=== PATIENT | female | born 1930 | race Caucasian/White ===

== ENCOUNTER → 2017-04-06 | Outpatient (CLI) | payer OTHER ==
[~2017-04-06] VITALS: Ht 154.9 cm; Wt 63.0 kg
[~2017-04-06] MED LIST: ADVIL100 M2 PO; ALEVE220 MG PO; AREDS PO; ASPIRIN EC81 M1 PO; HYDROCHLOROTHIA25 M1 PO; HYDROCODONE-AP1 EAC6 PO; MELOXICAM7.5 MG PO; PERCOCET 5-3251 EACH PO; SIMVASTATIN20 MG PO; VESICARE10 M1 PO
--- NOTE | ~2017-04-06 | HPC ---
[facility] [place] [address] PAIN MANAGEMENT CONSULTATION Name: RALPH GIL Room #: REG BIJAN Barraza#: [id number] Admission: 04/06/17 Attend Phys: Magdiel Owusu MD Discharge: Date of : [birth year] Report #: [id number] THIS REPORT FOR: //name// CC: Juan J Owusu DATE OF SERVICE: 04/06/2017 Followup visit for chronic low back pain with radiculopathy. It has been over 3 years since I saw the patient who responded beautifully at that time to a lumbar epidural steroid injection using a transforaminal approach at L4-L5. Her pain has always been present, but it has been very modest and she has been able to manage it effectively. Recently, the pain is increased in intensity. She scores it as an 8/10 on the pain score. This causes fatigue and often she has to lay down to alleviate the pain. She has been doing her best to remain active. She has been using recumbent bike much to her credit at the age of 86. Today, she presents requesting an epidural injection. Pain is in her left leg, left hip and it follows an L5-S1 distribution. MEDICATIONS: VESIcare, naproxen, aspirin, simvastatin and hydrochlorothiazide. ALLERGIES: SULFA AND CLARITHROMYCIN. PAST MEDICAL HISTORY: Remarkable for chronic and recurring back pain. She had a tubal in 1967 and hysterectomy in 1969. Her health has been good. REVIEW OF SYSTEMS: Positive for pain. She denies chest pain, shortness of breath, changes in diet or changes in bowel or bladder. She exercises. SOCIAL HISTORY: She is . is present. They live independently. She does not smoke or drink. PQRS reviewed. All medications were reviewed and reconciled. The patient does not have hypertension. She is not on opioid medication. Her BMI is 26.2. She does not smoke. PHYSICAL EXAMINATION: VITAL SIGNS: Blood pressure 114/68, heart rate 87 and respirations 16. BMI is 26.2. MUSCULOSKELETAL: She ambulates with antalgic features. She has mild weakness. Positive straight leg raising is noted bilaterally worse on the left. It follows an L5 distribution through the thigh and calf. Sensation is intact. [address] [address] PAIN MANAGEMENT CONSULTATION Name: RALPH GIL Room #: REG Felicia Oates.#: [id number] Admission: 04/06/17 Attend Phys: Magdiel Owusu MD Discharge: Date of : [birth year] Report #: [id number] IMPRESSION: 1. Chronic recurring low back pain with radiculopathy in the left L5-S1. 2. Lumbar spondylosis. PLAN: Repeat epidural steroid injection under fluoroscopic guidance. PROCEDURE: She was taken to the fluoroscopic suite for the transforaminal injection, placed prone, skin was prepped with ChloraPrep. Skin anesthetized over the L4-L5 neural foramen. A 20-gauge Tuohy epidural needle advanced first attempt in the epidural space through the neural foramen using triplanar fluoroscopic views; 1 mL of Omnipaque injected and excellent spread of dye observed into the epidural space followed by 3 mL of 1% lidocaine and 60 mg of triamcinolone. She tolerated the procedure well and was observed for 45 minutes and discharged. Follow up as needed. No medications were ordered. I did provide counseling regarding exercise. <ELECTRONICALLY SIGNED> By: Magdiel Owusu MD 05/17/17 1640 [id number] [id number] Magdiel Owusu MD /nt
[2017-04-06 10:46] VITALS: BP 114/68
== END | disposition home or self-care (01) ==
LOC: PAIN 07:18
DX: M54.16 Radiculopathy, lumbar region (principal); G89.29 Other chronic pain; M47.896 Other spondylosis, lumbar region; Z79.82 Long term (current) use of aspirin; Z79.899 Other long term (current) drug therapy; Z88.2 Allergy status to sulfonamides; Z88.8 Allergy status to other drugs, medicaments and biological substances; Z90.710 Acquired absence of both cervix and uterus; Z98.890 Other specified postprocedural states

== ENCOUNTER → 2017-07-05 | Outpatient (CLI) | payer OTHER | LOC: RAD 11:43 | DX: Z12.31 Encounter for screening mammogram for malignant neoplasm of breast (principal) ==

== ENCOUNTER 2017-12-13 14:55 | Inpatient (IN) | payer OTHER ==
[~2017-12-13] VITALS: Ht 152.4 cm; Wt 65.8 kg
--- NOTE | ~2017-12-13 | EKG ---
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1930 Requested By: Rianna Caceres Order Number: [id number] MD: Alex Lucas Measurements Intervals [place] Rate: 124 P: 52 WI: 153 QRS: 42 QRSD: 85 T: 189 QT: 303 QTc: 436 Interpretive Statements Sinus tachycardia Probable LVH with secondary repol abnrm Baseline wander in lead(s) II,III,aVR,aVL,aVF,V1,V2,V3,V4,V5,V6 Compared to ECG 12/13/2017 15:00:34 No significant changes Electronically Signed On 12-17-2017 13:26:55 CDT by Alex Lucas [email or web address] <ELECTRONICALLY SIGNED> By: Alex Lucas MD 12/17/176 36 36 Alex Lucas MD /EPI
--- NOTE | ~2017-12-13 | HC ---
[facility] [place] [address] CONSULTATION Name: RALPH GIL Room #: 427-P ADM IN M.R.#: [id number] Admission: 12/13/17 Attend Phys: Jaskaran Paredes MD Discharge: Date of : [birth year] Report #: [id number] THIS REPORT FOR: //name// CC: Dina Owusu MD REASON FOR CONSULTATION: Leukocytosis. HISTORY OF PRESENT ILLNESS: The patient is a very pleasant 87-year-old female who lives in [place]. She has had about 5-day history of sort of feeling tired, decreased appetite and maybe felt a little bit more. She denies any headache, any swallowing troubles nausea, vomiting, abdominal pain, bruising. She bumped her knee about 4-5 days ago. Weight has been okay. There is a little bit of ankle swelling that is normal for her. PAST MEDICAL HISTORY: Very unremarkable. Does have a history of some back issues. Had seen Dr. Owusu before. In the past, she is supposed to have hypertension, hyperlipidemia, osteoarthritis and a few recurrent UTIs, also the left knee surgery before and also cataract removal in the past. MEDICATIONS: Prior to admission include hydrochlorothiazide, simvastatin, aspirin, naproxen, VESIcare and . PHYSICAL EXAMINATION: GENERAL: The patient appears her stated age. She is alert and oriented x 3. LUNGS: Clear. HEART: Regular rate and rhythm. LYMPHATICS: No enlarged lymph nodes in the supraclavicular, cervical, axillary or inguinal or epitrochlear region. ABDOMEN: Soft, without masses. Slightly obese. No organomegaly. EXTREMITIES: Without clubbing, cyanosis or edema. There is ecchymosis. I think it was the right knee if I recall. No petechiae. LABORATORY DATA: Notable for a white count of 86,000, hemoglobin 11.7, platelets of 58,000. Differential is still pending, but yesterday was reported as including some blasts and myelocytes. They look still embargoed by the lab as the pathologist has not reviewed it. Her BMP was fairly normal with a sodium of 138, slightly low potassium 3.4, calcium 9, BUN 6, creatinine 1.0. Liver functions will be drawn. 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 Nonsmoker, no alcohol, no street drugs. [facility] [address] [place] [address] CONSULTATION Name: RALPH GIL Room #: 427-P [facility] IN ..#: [id number] Admission: 12/13/17 Attend Phys: Jaskaran Paredes MD Discharge: Date of : [birth year] Report #: [id number] FAMILY HISTORY: Father from emphysema. She had 7 siblings grown up and 1 or 2 with lung cancer. She has 3 children that are daughters, alive and well. She lives with her in [place]. He is retired, worked for [employer]. DISCUSSION: Discussed with the patient, I am very concerned that she has acute leukemia, possibly coming out of MDS. We talked about further evaluating this. We also talked about perhaps seeing some of her leukemia experts at the [facility]. I have just got off the phone with the nurse navigator and the patient will probably have an appointment with Dr. Walsh on Monday about 09:20. We will check her blood counts tomorrow either as an inpatient or outpatient and we are also checking coags today to make sure she does not have suggestions for acute promyelocytic leukemia. The patient is agreeable with this. She is also aware that this is a very serious diagnosis if proves out. ASSESSMENT AND PLAN: 1. Leukocytosis with probable metamyelocytes and blasts worrisome at this point for acute myeloid leukemia. We will check coags. We will also check liver function tests, tentatively arrange for Pulmonary, Dr. Walsh on Monday. We will check outpatient lab tomorrow. 2. Possible hypertension. Continue meds. 3. Hyperlipidemia, statins as needed. 4. Osteoarthritis, would probably hold aspirin and nonsteroidals at this point. 5. Old back pain, will defer to others. We will follow with you. <ELECTRONICALLY SIGNED> By: Magdiel Cronin MD 12/15/17 0742 0921 1252 Magdiel Cronin MD /nt
--- NOTE | ~2017-12-13 | EKG ---
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1930 Requested By: Vlad Olivas Order Number: [id number] MD: Alex Lucas Measurements Intervals [place] Rate: 118 P: 68 SC: 166 QRS: 44 QRSD: 83 T: 137 QT: 308 QTc: 432 Interpretive Statements Sinus tachycardia Probable left atrial enlargement Borderline repolarization abnormality Compared to ECG 08/28/2008 08:48:30 Sinus rhythm no longer present Left ventricular hypertrophy no longer present ST (T wave) deviation no longer present Electronically Signed On 12-13-2017 16:30:24 CDT by Alex Lucas [email or web address] <ELECTRONICALLY SIGNED> By: Alex Lucas MD 12/13/17 1630 1500 1500 Alex Lucas MD /EPI
[2017-12-13 15:10] VITALS: BP 164/80
[2017-12-13 15:36] LABS: HEMATOCRIT 40.7 % (37.0-47.0); MCH 28.7 pg (26.0-34.0); MCV 89.7 fL (80.0-100.0); RBC 4.54 mil/uL (4.20-5.00); RDW 28.3 % (10.5-14.5)
[2017-12-13 15:39] LABS: WBC 74.7 thou/uL (4.0-11.0)
[2017-12-13 15:42] LABS: ANION GAP 5 mmol/L (7-16); BUN 6 mg/dL (7-18); CALCIUM 9.8 mg/dL (8.5-10.1); CHLORIDE 94 mmol/L (98-107); CO2 31 mmol/L (21-32); GLUCOSE 131 mg/dL (74-106); POTASSIUM 3.4 mmol/L (3.5-5.1); SODIUM 130 mmol/L (136-145)
[2017-12-13 15:43] LABS: URINE BLOOD 1+ (Negative); URINE CLARITY SL CLOUDY; URINE COLOR YELLOW; URINE GLUCOSE-RANDOM* NEGATIVE (Negative); URINE KETONES NEGATIVE (Negative); URINE LEUKOCYTES-REFLEX 1+ (Negative); URINE NITRITE-REFLEX NEGATIVE (Negative); URINE PROTEIN (DIPSTICK) 1+ (Negative)
[2017-12-13 15:44] LABS: ICTOTEST (BILI CONFIRMATORY) Negative (Negative); URINE BILIRUBIN NEGATIVE (Negative)
[2017-12-13 15:49] LABS: MUCUS 4-6 Moderate strn/LPF (None Seen); SQUAMOUS 4-10 Moderate /LPF (0-3)
[2017-12-13 15:50] LABS: CRYSTALS None Seen /LPF (None Seen); HYALINE CASTS 0-3 Few /LPF (None Seen); URINE RBC 0-2 Rare /HPF (0-2); URINE WBC-REFLEX >25 Many /HPF (0-5)
[2017-12-13 15:51] LABS: TROPONIN-I <0.06 ng/mL (<0.06)
[2017-12-13 16:17] LABS: PLATELET COUNT 53 thou/uL (150-400)
[2017-12-13 16:20] LABS: ANISOCYTOSIS 2+; NUCLEATED RBCS 3 /100WBC; POLYCHROMASIA OCCASIONAL
[2017-12-13 16:21] LABS: OVALOCYTES OCCASIONAL
[2017-12-13 17:58] VITALS: BP 140/73
[2017-12-13 21:45] VITALS: BP 129/74
[2017-12-14 04:30] VITALS: BP 117/62
[2017-12-14 07:10] VITALS: BP 114/63
[2017-12-14 08:07] LABS: HEMOGLOBIN 12.9 g/dL (11.1-15.9)
[2017-12-14 08:57] LABS: HEMOGLOBIN 11.7 gm/dL (12.0-15.0)
[2017-12-14 09:00] LABS: HEMATOCRIT 36.9 % (37.0-47.0); MCH 28.4 pg (26.0-34.0); MCHC 31.6 g/dL (28.0-37.0); MCV 89.8 fL (80.0-100.0); PLATELET COUNT 58 thou/uL (150-400); RBC 4.11 mil/uL (4.20-5.00); RDW 28.4 % (10.5-14.5)
[2017-12-14 09:05] LABS: CALCIUM 9.1 mg/dL (8.5-10.1); CREATININE 0.9 mg/dL (0.6-1.0); POTASSIUM 3.3 mmol/L (3.5-5.1)
[2017-12-14 09:26] LABS: APTT 27.7 Seconds (24.5-32.8); FIBRINOGEN 297.6 mg/dL (210-360); INR 1.2; PROTIME 11.9 Seconds (9.3-11.4)
[2017-12-14 09:38] LABS: ALBUMIN 2.9 g/dL (3.4-5.0); DIRECT BILIRUBIN 0.3 mg/dL (<0.1-0.3); TOTAL BILIRUBIN 0.7 mg/dL (<0.1-1.0); TOTAL PROTEIN 5.6 g/dL (6.4-8.2)
[2017-12-14 10:10] LABS: ABSOLUTE NEUTROPHILS 18.1 thou/uL (1.4-8.2); ATYPICAL LYMPHS 1 %; METAMYELOCYTES 1 %; MYELOCYTES 2 %; NUCLEATED RBCS 2 /100WBC
[2017-12-14 10:44] LABS: ANISOCYTOSIS 2+
[2017-12-14 10:45] LABS: BLASTS 16 %
[2017-12-14 14:50] LABS: ABSOLUTE NEUTROPHILS 8.2 thou/uL (1.4-8.2)
[2017-12-14 14:51] LABS: METAMYELOCYTES 1 %
[2017-12-14 14:57] LABS: BLASTS 15 %
[2017-12-14 16:17] VITALS: BP 114/63
[2017-12-14 16:58] VITALS: BP 116/60
[2017-12-14 19:43] VITALS: BP 124/57
[2017-12-15 06:55] LABS: CALCIUM 8.7 mg/dL (8.5-10.1); POTASSIUM 3.3 mmol/L (3.5-5.1)
[2017-12-15 06:56] LABS: HEMOGLOBIN 11.1 gm/dL (12.0-15.0)
[2017-12-15 06:59] LABS: HEMATOCRIT 36.3 % (37.0-47.0); MCH 27.6 pg (26.0-34.0); MCHC 30.7 g/dL (28.0-37.0); RBC 4.03 mil/uL (4.20-5.00); RDW 28.2 % (10.5-14.5)
[2017-12-15 07:04] LABS: WBC 118.4 thou/uL (4.0-11.0)
[2017-12-15 07:50] VITALS: BP 127/69
[2017-12-15 15:08] VITALS: BP 121/55
[2017-12-15 20:18] VITALS: BP 122/65
[2017-12-16 00:31] VITALS: BP 120/67
[2017-12-16 04:28] VITALS: BP 123/78
[2017-12-16 06:08] LABS: CALCIUM 9.1 mg/dL (8.5-10.1); CREATININE 1.2 mg/dL (0.6-1.0)
[2017-12-16 06:19] LABS: POTASSIUM 2.9 mmol/L (3.5-5.1)
[2017-12-16 06:35] LABS: HEMATOCRIT 31.6 % (37.0-47.0); HEMOGLOBIN 10.5 gm/dL (12.0-15.0); MCH 29.1 pg (26.0-34.0); MCHC 33.1 g/dL (28.0-37.0); MCV 88.1 fL (80.0-100.0); RBC 3.59 mil/uL (4.20-5.00); RDW 27.9 % (10.5-14.5)
[2017-12-16 06:36] LABS: WBC 157.8 thou/uL (4.0-11.0)
[2017-12-16 08:21] VITALS: BP 138/69
[2017-12-16 17:06] VITALS: BP 113/73
[2017-12-16 20:17] LABS: BE(vivo) -3.2 mmol/L (-2 to +3); HCO3 19.9 mmol/L (22.0-26.0); PCO2 29.6 mmHg (35.0-45.0); pH 7.445 (7.360-7.450); sO2 86.6 % (92.0-98.0)
[2017-12-16 20:18] LABS: PO2 48.6 mmHg (80.0-100.0)
[2017-12-16 22:42] VITALS: BP 102/70
[2017-12-17 00:07] VITALS: BP 102/66
[2017-12-17 03:47] VITALS: BP 102/62
[2017-12-17 04:26] LABS: MCHC 31.8 g/dL (28.0-37.0)
[2017-12-17 04:29] LABS: HEMOGLOBIN 10.8 gm/dL (12.0-15.0); MCH 28.9 pg (26.0-34.0); MCV 90.9 fL (80.0-100.0); RBC 3.74 mil/uL (4.20-5.00); RDW 27.5 % (10.5-14.5)
[2017-12-17 04:35] LABS: CALCIUM 9.9 mg/dL (8.5-10.1); CREATININE 1.6 mg/dL (0.6-1.0); POTASSIUM 3.1 mmol/L (3.5-5.1)
[2017-12-17 04:39] LABS: WBC 231.1 thou/uL (4.0-11.0)
[2017-12-17 06:23] LABS: BE(vivo) -14.7 mmol/L (-2 to +3); HCO3 11.8 mmol/L (22.0-26.0); PCO2 29.7 mmHg (35.0-45.0); sO2 79.9 % (92.0-98.0)
[2017-12-17 07:40] LABS: PO2 51.5 mmHg (80.0-100.0); pH 7.216 (7.360-7.450)
== END 2017-12-17 11:13 | DRG 835 ==
LOC: ER 14:55 → 4E 16:50 → EROBS 16:50 → 4E 19:46 → 3W 12-16 22:53
PROVIDERS: Emergency Medicine; Hospitalist; Internal Medicine Hematology & Oncology; Nurse Practitioner; Nurse Practitioner Acute Care
DX: C92.00 Acute myeloblastic leukemia, not having achieved remission (principal); N39.0 Urinary tract infection, site not specified; E87.1 Hypo-osmolality and hyponatremia; I10 Essential (primary) hypertension; E78.5 Hyperlipidemia, unspecified; M19.90 Unspecified osteoarthritis, unspecified site; G89.29 Other chronic pain; M54.9 Dorsalgia, unspecified; D69.6 Thrombocytopenia, unspecified; M62.84 Sarcopenia; R00.0 Tachycardia, unspecified; E87.6 Hypokalemia; Z79.82 Long term (current) use of aspirin; Z79.899 Other long term (current) drug therapy; Z88.1 Allergy status to other antibiotic agents; Z88.2 Allergy status to sulfonamides; Z98.42 Cataract extraction status, left eye; Z83.6 Family history of other diseases of the respiratory system; Z80.1 Family history of malignant neoplasm of trachea, bronchus and lung; Z28.89 Immunization not carried out for other reason
CPT/HCPCS: 10183; 10779